=== PATIENT | male | born 1965 | race African-American/Black ===

== ENCOUNTER 2018-04-07 01:58 | Inpatient (IN) | payer MEDICAID ==
[~2018-04-07] VITALS: Ht 180.3 cm; Wt 81.2 kg
[2018-04-07] VITALS (12 sets, daily range): BP systolic 92–142; BP diastolic 60–104
[2018-04-07] MEDS ORDERED: NITROGLYCERIN OINT 1GM/INCH UDPKT TD STA (02:08)
[2018-04-07] MEDS ORDERED: ENALAPRIL 2.5MG/2ML VIAL 2ML IV STA (02:08)
[2018-04-07] MEDS ORDERED: ONDANSETRON HCL 4MG/2ML VIAL IV STA (02:08)
[2018-04-07] MEDS ORDERED: FUROSEMIDE 40MG/4ML VIAL IV STA (02:08)
[2018-04-07 02:38] LABS: BASOPHILS % 0.5 % (0.0-2.0); EOSINOPHILS % 0.6 % (0.0-5.0); HEMATOCRIT. 47.3 % (42.0-52.0); HEMOGLOBIN. 15.6 g/dL (14.0-18.0); LYMPHOCYTES % 19.5 % (20.0-50.0); MEAN CORPUSCULAR HEMOGLOBIN 32.7 pg (28.0-32.0); MEAN PLATELET VOLUME 9.8 fl (7.4-10.4); MONOCYTES % 8.5 % (2.0-8.0); NEUTROPHILS % 70.9 % (40.0-76.0); PLATELET 226 x1000/uL (130-400); RED BLOOD CELL COUNT 4.78 mill/uL (4.7-6.1); RED CELL DISTRIBUTION WIDTH 14.2 % (11.6-14.6)
[2018-04-07 02:42] LABS: CHLORIDE 111 mEq/L (98-107)
[2018-04-07 03:21] LABS: BG BILEVEL POS AIRWAY PRESSURE 151/5; BG CARBOXYHEMOGLOBIN 2.5 % (0.5-1.5); BG DEOXYHEMOGLOBIN 15.3 % (0.0-5.0); BG FRACTION INSPIRED OXYGEN 50; BG HCO3 ACT 20.3 mmol/L (22.0-26.0); BG METHEMOGLOBIN 0.2 % (0.0-1.5); BG OXYGEN SATURATION 84.3 % (92.0-98.5); BG PCO2 34.7 mmHg (35.0-45.0); BG PH 7.384 (7.350-7.450); BG PO2 50.5 mmHg (75.0-100.0); BG SAMPLE SITE LEFT RADIAL; BG TIDAL VOLUME(mL) 913 mL; BG TOTAL HEMOGLOBIN 14.7 g/dL (12.0-18.0); BG VENT MODE MASK - BIPAP; BG VENT RATE 20 set
[2018-04-07] MEDS ORDERED: CLONIDINE 0.1MG TABLET PO PRN (07:15)
[2018-04-07] MEDS ORDERED: ACETAMINOPHEN 325MG TABLET PO PRN (07:15)
[2018-04-07] MEDS: ASPIRIN 81MG EC TABLET PO SCH (08:19)
[2018-04-07] MEDS: AMLODIPINE 10MG TABLET PO SCH (08:20)
[2018-04-07] MEDS: METOPROLOL TARTRATE 25MG TABLET PO SCH ×2 (08:20→20:24)
[2018-04-07] MEDS: ENOXAPARIN 40MG/0.4ML SYR SUBCUT SCH (08:20)
[2018-04-07 12:59] LABS: BG BASE EXCESS -1.9 mmol/L (-2.0-2.0); BG CARBOXYHEMOGLOBIN 0.8 % (0.5-1.5); BG DEOXYHEMOGLOBIN 2.8 % (0.0-5.0); BG FRACTION INSPIRED OXYGEN 40; BG HCO3 ACT 20.8 mmol/L (22.0-26.0); BG METHEMOGLOBIN 0.2 % (0.0-1.5); BG OXYGEN SATURATION 97.2 % (92.0-98.5); BG OXYHEMOGLOBIN 96.2 % (94.0-97.0); BG PCO2 30.2 mmHg (35.0-45.0); BG PH 7.455 (7.350-7.450); BG PO2 86.4 mmHg (75.0-100.0); BG SAMPLE SITE RIGHT RADIAL; BG TOTAL HEMOGLOBIN 15.5 g/dL (12.0-18.0); BG VENT MODE MASK - SIMPLE
[2018-04-07] MEDS ORDERED: IPRATROPIUM/ALBUTEROL 0.5-3(2.5)MG/3ML NEB HHN PRN (13:00)
[2018-04-07] MEDS: IPRATROPIUM/ALBUTEROL 0.5-3(2.5)MG/3ML NEB HHN SCH ×2 (13:04→20:26)
[2018-04-07] MEDS: FUROSEMIDE 40MG/4ML VIAL IVP SCH (13:15)
[2018-04-07] MEDS: METHYLPREDNISOLONE SOD SUCC 40 MG/ML VIAL IV SCH ×2 (13:15→21:43)
[2018-04-07 15:48] LABS: *AMPHETAMINES SCREEN URINE NEGATIVE (NEGATIVE); *BARBITURATES SCREEN URINE NEGATIVE (NEGATIVE); *BENZODIAZEPINES SCREEN URINE NEGATIVE (NEGATIVE); *COCAINE SCREEN URINE PRESUMTIVE POSITIVE (NEGATIVE)
[2018-04-07 15:49] LABS: CANNABINOID URINE SCREEN NEGATIVE (NEGATIVE); METHADONE URINE SCREEN NEGATIVE (NEGATIVE); OPIATES URINE SCREEN NEGATIVE (NEGATIVE); PHENCYCLIDINE URINE SCREEN NEGATIVE (NEGATIVE)
[2018-04-07 16:11] LABS: CREATINE KINASE MB FRACTION 3.7 ng/mL (0.5-3.6)
[2018-04-07 16:26] LABS: HEPATITIS B SURFACE ANTIGEN NEGATIVE
[2018-04-07 16:54] LABS: HEPATITIS B CORE AB IGM NEGATIVE
[2018-04-07] MEDS: HYDROCODONE/ACETAMINOPHEN 5/325MG TABLET PO PRN ×2 (16:54→21:48)
[2018-04-07 16:56] LABS: HEPATITIS A AB IGM NEGATIVE (NEGATIVE)
[2018-04-07] MEDS: ONDANSETRON HCL 4MG/2ML VIAL IV PRN (22:55)
[2018-04-08] VITALS (11 sets, daily range): BP systolic 110–134; BP diastolic 69–101
[2018-04-08] MEDS: BUDESONIDE 0.5MG/2ML NEB HHN SCH ×3 (01:41→19:47)
[2018-04-08] MEDS: IPRATROPIUM/ALBUTEROL 0.5-3(2.5)MG/3ML NEB HHN SCH ×4 (01:41→19:47)
[2018-04-08 02:17] LABS: CREATINE KINASE MB FRACTION 2.5 ng/mL (0.5-3.6)
[2018-04-08] MEDS: HYDROCODONE/ACETAMINOPHEN 5/325MG TABLET PO PRN ×4 (04:30→21:59)
[2018-04-08] MEDS: METHYLPREDNISOLONE SOD SUCC 40 MG/ML VIAL IV SCH ×3 (06:10→22:00)
[2018-04-08 07:12] LABS: HEMATOCRIT. 43.4 % (42.0-52.0); HEMOGLOBIN. 14.5 g/dL (14.0-18.0); MEAN CORPUSCULAR HEMOGLOBIN 32.7 pg (28.0-32.0); MEAN CORPUSCULAR VOLUME 98.2 fL (80.0-94.0); MEAN PLATELET VOLUME 9.8 fl (7.4-10.4); PLATELET 214 x1000/uL (130-400); RED BLOOD CELL COUNT 4.42 mill/uL (4.7-6.1); RED CELL DISTRIBUTION WIDTH 13.8 % (11.6-14.6)
[2018-04-08 07:13] LABS: CHLORIDE 106 mEq/L (98-107)
[2018-04-08 07:33] LABS: LDL CHOLESTEROL 71 mg/dL (5-100)
[2018-04-08 07:34] LABS: HDL CHOLESTEROL 49 mg/dL (40-59)
[2018-04-08] MEDS: ENOXAPARIN 40MG/0.4ML SYR SUBCUT SCH (08:58)
[2018-04-08] MEDS: AMLODIPINE 10MG TABLET PO SCH (08:58)
[2018-04-08] MEDS: ASPIRIN 81MG EC TABLET PO SCH (08:58)
[2018-04-08] MEDS: FUROSEMIDE 40MG/4ML VIAL IVP SCH (08:58)
[2018-04-08] MEDS: METOPROLOL TARTRATE 25MG TABLET PO SCH ×2 (08:58→21:59)
[2018-04-08] MEDS ORDERED: SODIUM BICARBONATE 4% (2.4MEQ) 5ML VIAL IV ONE (08:59)
[2018-04-08] MEDS ORDERED: DIGOXIN 500MCG/2ML AMP IV NR (11:00)
[2018-04-08] MEDS ORDERED: ENOXAPARIN 40MG/0.4ML SYR SUBCUT NR (11:45)
[2018-04-08 12:05] LABS: PLATELET ESTIMATE NORMAL
[2018-04-08 12:18] LABS: T4 FREE 0.9 ng/dL (0.76-1.46)
[2018-04-08 12:33] LABS: INR 1.2; PROTHROMBIN TIME 12.1 sec (9.4-11.6)
[2018-04-08] MEDS: DILTIAZEM HCL 125 MG in DEXT 5% WATER 100 ML IV SCH (13:26)
[2018-04-08 16:11] LABS: CREATINE KINASE MB FRACTION 2.7 ng/mL (0.5-3.6)
[2018-04-08] MEDS: DOCUSATE SODIUM 100MG CAPSULE PO PRN (17:51)
[2018-04-08] MEDS ORDERED: WARFARIN SODIUM 5MG TABLET PO SCH (18:00)
[2018-04-08] MEDS: ENOXAPARIN 80MG/0.8ML SYR SUBCUT SCH (22:00)
[2018-04-09] VITALS (12 sets, daily range): BP systolic 114–155; BP diastolic 62–86
[2018-04-09 00:14] LABS: CREATINE KINASE MB FRACTION 3.1 ng/mL (0.5-3.6)
[2018-04-09] MEDS: IPRATROPIUM/ALBUTEROL 0.5-3(2.5)MG/3ML NEB HHN SCH ×3 (01:06→21:05)
[2018-04-09] MEDS: METHYLPREDNISOLONE SOD SUCC 40 MG/ML VIAL IV SCH (05:47)
[2018-04-09] MEDS: HYDROCODONE/ACETAMINOPHEN 5/325MG TABLET PO PRN ×4 (05:47→22:10)
[2018-04-09 07:12] LABS: INR 1.1
[2018-04-09 07:24] LABS: CREATINE KINASE MB FRACTION 2.7 ng/mL (0.5-3.6)
[2018-04-09] MEDS ORDERED: WARFARIN SODIUM 2.5MG TABLET PO ONE (09:00)
[2018-04-09] MEDS: BUDESONIDE 0.5MG/2ML NEB HHN SCH ×2 (09:08→21:05)
[2018-04-09] MEDS: METOPROLOL TARTRATE 25MG TABLET PO SCH ×2 (09:18→21:39)
[2018-04-09] MEDS: FUROSEMIDE 40MG/4ML VIAL IVP SCH (09:18)
[2018-04-09] MEDS: ASPIRIN 81MG EC TABLET PO SCH (09:18)
[2018-04-09] MEDS: AMLODIPINE 10MG TABLET PO SCH (09:18)
[2018-04-09] MEDS: ENOXAPARIN 80MG/0.8ML SYR SUBCUT SCH ×2 (09:18→21:39)
[2018-04-09] MEDS: DILTIAZEM HCL 125 MG in DEXT 5% WATER 100 ML IV SCH (17:53)
[2018-04-09] MEDS ORDERED: WARFARIN SODIUM 7.5MG TABLET PO NR (18:00)
[2018-04-10] VITALS (16 sets, daily range): BP systolic 104–165; BP diastolic 62–100
[2018-04-10] MEDS: IPRATROPIUM/ALBUTEROL 0.5-3(2.5)MG/3ML NEB HHN SCH ×4 (02:50→20:29)
[2018-04-10] MEDS: HYDROCODONE/ACETAMINOPHEN 5/325MG TABLET PO PRN ×4 (03:19→20:28)
[2018-04-10 06:47] LABS: INR 1.2; PROTHROMBIN TIME 12.4 sec (9.4-11.6)
[2018-04-10] MEDS ORDERED: PREDNISONE 20MG TABLET PO SCH (08:00)
[2018-04-10] MEDS: BUDESONIDE 0.5MG/2ML NEB HHN SCH (08:10)
[2018-04-10] MEDS: FUROSEMIDE 40MG/4ML VIAL IVP SCH (08:35)
[2018-04-10] MEDS: ASPIRIN 81MG EC TABLET PO SCH (08:35)
[2018-04-10] MEDS: ENOXAPARIN 80MG/0.8ML SYR SUBCUT SCH ×2 (08:36→20:29)
[2018-04-10] MEDS: LOSARTAN POTASSIUM 25 MG TABLET PO SCH (09:53)
[2018-04-10 10:58] LABS: HEMATOCRIT 46.5 % (42.0-52.0); HEMOGLOBIN 15.3 g/dL (14.0-18.0); MEAN CORPUSCULAR HEMOGLOBIN 32.4 pg (28.0-32.0); MEAN CORPUSCULAR VOLUME 98.5 fL (80.0-94.0); PLATELET 243 x1000/uL (130-400); RED BLOOD CELL COUNT 4.72 mill/uL (4.7-6.1)
[2018-04-10] MEDS ORDERED: DIGOXIN 500MCG/2ML AMP IV NR (16:08)
[2018-04-10] MEDS: METOPROLOL TARTRATE 50MG TABLET PO SCH (17:59)
[2018-04-10] MEDS ORDERED: WARFARIN SODIUM 7.5MG TABLET PO NR (18:00)
[2018-04-10] MEDS ORDERED: METOPROLOL TARTRATE 50MG TABLET PO SCH (21:00)
[2018-04-11] VITALS (14 sets, daily range): BP systolic 97–161; BP diastolic 66–107
[2018-04-11] MEDS: HYDROCODONE/ACETAMINOPHEN 5/325MG TABLET PO PRN ×4 (00:29→18:29)
[2018-04-11] MEDS: IPRATROPIUM/ALBUTEROL 0.5-3(2.5)MG/3ML NEB HHN SCH ×4 (02:32→21:20)
[2018-04-11 06:36] LABS: INR 1.5; PROTHROMBIN TIME 15.2 sec (9.4-11.6)
[2018-04-11] MEDS ORDERED: PREDNISONE 20MG TABLET PO SCH (09:00)
[2018-04-11] MEDS: LOSARTAN POTASSIUM 25 MG TABLET PO SCH (09:49)
[2018-04-11] MEDS: ASPIRIN 81MG EC TABLET PO SCH (09:51)
[2018-04-11] MEDS: FUROSEMIDE 40MG/4ML VIAL IVP SCH (09:51)
[2018-04-11] MEDS: ENOXAPARIN 80MG/0.8ML SYR SUBCUT SCH ×2 (09:52→21:43)
[2018-04-11] MEDS: METOPROLOL TARTRATE 50MG TABLET PO SCH ×2 (09:58→21:43)
[2018-04-11] MEDS ORDERED: WARFARIN SODIUM 7.5MG TABLET PO SCH (18:00)
[2018-04-12] VITALS (15 sets, daily range): BP systolic 115–156; BP diastolic 42–111
[2018-04-12] MEDS: HYDROCODONE/ACETAMINOPHEN 5/325MG TABLET PO PRN ×4 (01:39→19:50)
[2018-04-12] MEDS: IPRATROPIUM/ALBUTEROL 0.5-3(2.5)MG/3ML NEB HHN SCH ×5 (02:16→20:35)
[2018-04-12] MEDS: FUROSEMIDE 40MG TABLET PO SCH (09:48)
[2018-04-12] MEDS: LOSARTAN POTASSIUM 25 MG TABLET PO SCH (09:48)
[2018-04-12] MEDS: ENOXAPARIN 80MG/0.8ML SYR SUBCUT SCH (09:48)
[2018-04-12] MEDS: ASPIRIN 81MG EC TABLET PO SCH (09:48)
[2018-04-12] MEDS: METOPROLOL TARTRATE 50MG TABLET PO SCH ×2 (09:49→20:24)
[2018-04-12 11:13] LABS: BASOPHILS % 0.3 % (0.0-2.0); EOSINOPHILS % 2.8 % (0.0-5.0); HEMATOCRIT. 48.8 % (42.0-52.0); HEMOGLOBIN. 16.4 g/dL (14.0-18.0); LYMPHOCYTES % 31.5 % (20.0-50.0); MEAN CORPUSCULAR HEMOGLOBIN 32.6 pg (28.0-32.0); MEAN CORPUSCULAR VOLUME 97.2 fL (80.0-94.0); MEAN PLATELET VOLUME 9.7 fl (7.4-10.4); NEUTROPHILS % 56.4 % (40.0-76.0); PLATELET 241 x1000/uL (130-400); RED BLOOD CELL COUNT 5.02 mill/uL (4.7-6.1); RED CELL DISTRIBUTION WIDTH 13.9 % (11.6-14.6)
[2018-04-12 11:36] LABS: INR 2.4; PROTHROMBIN TIME 25.1 sec (9.4-11.6)
[2018-04-12 11:49] LABS: CHLORIDE 103 mEq/L (98-107)
[2018-04-13] VITALS (10 sets, daily range): BP systolic 115–154; BP diastolic 68–95
[2018-04-13] MEDS: HYDROCODONE/ACETAMINOPHEN 5/325MG TABLET PO PRN ×4 (00:14→19:42)
[2018-04-13] MEDS: IPRATROPIUM/ALBUTEROL 0.5-3(2.5)MG/3ML NEB HHN SCH ×4 (01:41→20:05)
[2018-04-13 08:28] LABS: INR 1.6; PROTHROMBIN TIME 16.1 sec (9.4-11.6)
[2018-04-13] MEDS: FUROSEMIDE 40MG TABLET PO SCH (10:47)
[2018-04-13] MEDS: LOSARTAN POTASSIUM 25 MG TABLET PO SCH (10:47)
[2018-04-13] MEDS: DOCUSATE SODIUM 100MG CAPSULE PO PRN (10:48)
[2018-04-13] MEDS: METOPROLOL TARTRATE 50MG TABLET PO SCH ×2 (10:48→21:18)
[2018-04-13] MEDS: ASPIRIN 81MG EC TABLET PO SCH (10:48)
[2018-04-13] MEDS: ENOXAPARIN 80MG/0.8ML SYR SUBCUT SCH (14:28)
[2018-04-13] MEDS ORDERED: WARFARIN SODIUM 2MG TABLET PO NR (18:00)
[2018-04-13] MEDS ORDERED: WARFARIN SODIUM 5MG TABLET PO NR (18:00)
[2018-04-13] MEDS: ONDANSETRON HCL 4MG/2ML VIAL IV PRN (20:07)
[2018-04-14] VITALS (12 sets, daily range): BP systolic 94–135; BP diastolic 58–94
[2018-04-14] MEDS: ENOXAPARIN 80MG/0.8ML SYR SUBCUT SCH ×2 (01:58→15:24)
[2018-04-14] MEDS: ONDANSETRON HCL 4MG/2ML VIAL IV PRN (02:04)
[2018-04-14] MEDS: IPRATROPIUM/ALBUTEROL 0.5-3(2.5)MG/3ML NEB HHN SCH ×4 (02:05→21:24)
[2018-04-14] MEDS: HYDROCODONE/ACETAMINOPHEN 5/325MG TABLET PO PRN ×4 (02:05→22:27)
[2018-04-14] MEDS ORDERED: MAGNESIUM/ALUMINUM HYDROXIDE/SIMETHICONE 30ML UDC PO PRN ×2 (02:30)
[2018-04-14 07:35] LABS: INR 1.4; PROTHROMBIN TIME 15.1 sec (9.4-11.6)
[2018-04-14] MEDS: ASPIRIN 81MG EC TABLET PO SCH (08:23)
[2018-04-14] MEDS: LOSARTAN POTASSIUM 25 MG TABLET PO SCH (08:25)
[2018-04-14] MEDS: METOPROLOL TARTRATE 50MG TABLET PO SCH ×2 (08:26→21:06)
[2018-04-14] MEDS: FUROSEMIDE 40MG TABLET PO SCH (08:27)
[2018-04-14] MEDS ORDERED: WARFARIN SODIUM 2MG TABLET PO NR (18:00)
[2018-04-14] MEDS ORDERED: WARFARIN SODIUM 5MG TABLET PO NR (18:00)
[2018-04-14] MEDS ORDERED: ZOLPIDEM TARTRATE 5MG TABLET PO PRN (20:15)
[2018-04-14] MEDS: DOCUSATE SODIUM 100MG CAPSULE PO PRN (22:29)
[2018-04-15] VITALS: BP 107/78
[2018-04-15] MEDS: IPRATROPIUM/ALBUTEROL 0.5-3(2.5)MG/3ML NEB HHN SCH ×2 (01:12→08:22)
[2018-04-15 02:00] VITALS: BP 108/56
[2018-04-15] MEDS: ENOXAPARIN 80MG/0.8ML SYR SUBCUT SCH (02:26)
[2018-04-15] MEDS: HYDROCODONE/ACETAMINOPHEN 5/325MG TABLET PO PRN ×2 (03:18→09:51)
[2018-04-15 04:00] VITALS: BP 116/68
[2018-04-15 06:00] VITALS: BP 117/63
[2018-04-15 08:00] VITALS: BP 114/85
[2018-04-15 08:29] LABS: INR 1.4; PROTHROMBIN TIME 14.5 sec (9.4-11.6)
[2018-04-15 08:49] LABS: CHLORIDE 100 mEq/L (98-107)
[2018-04-15 09:00] LABS: EOSINOPHILS % 7.6 % (0.0-5.0); HEMATOCRIT. 51.5 % (42.0-52.0); HEMOGLOBIN. 17.4 g/dL (14.0-18.0); LYMPHOCYTES % 56.5 % (20.0-50.0); MEAN CORPUSCULAR HEMOGLOBIN 32.7 pg (28.0-32.0); MEAN CORPUSCULAR VOLUME 96.9 fL (80.0-94.0); MEAN PLATELET VOLUME 9.4 fl (7.4-10.4); MONOCYTES % 7.7 % (2.0-8.0); NEUTROPHILS % 27.2 % (40.0-76.0); PLATELET 262 x1000/uL (130-400); RED BLOOD CELL COUNT 5.32 mill/uL (4.7-6.1); RED CELL DISTRIBUTION WIDTH 13.3 % (11.6-14.6)
[2018-04-15] MEDS: DOCUSATE SODIUM 100MG CAPSULE PO PRN (09:49)
[2018-04-15] MEDS: ASPIRIN 81MG EC TABLET PO SCH (09:49)
[2018-04-15] MEDS: METOPROLOL TARTRATE 50MG TABLET PO SCH (09:50)
[2018-04-15] MEDS: LOSARTAN POTASSIUM 25 MG TABLET PO SCH (09:50)
[2018-04-15] MEDS: FUROSEMIDE 40MG TABLET PO SCH (09:52)
[2018-04-15 10:53] VITALS: BP 114/85
[2018-04-15] MEDS ORDERED: WARFARIN SODIUM 7.5MG TABLET PO NR (18:00)
== END 2018-04-15 14:30 | disposition home or self-care (01) | DRG 469 ==
LOC: ER 02:17 → 5EST 02:40 → ENRESERV 03:27
PROVIDERS: ADMIT Hospitalist; ATTEND Hospitalist
PROC: 5A09357 Assistance with Respiratory Ventilation, Less than 24 Consecutive Hours, Continuous Positive Airway Pressure (ICD-10-PCS; principal; 2018-04-07)
DX: N17.9 Acute kidney failure, unspecified (principal); J96.01 Acute respiratory failure with hypoxia; E43 Unspecified severe protein-calorie malnutrition; I50.23 Acute on chronic systolic (congestive) heart failure; I48.92 Unspecified atrial flutter; I42.9 Cardiomyopathy, unspecified; I48.91 Unspecified atrial fibrillation; I13.0 Hypertensive heart and chronic kidney disease with heart failure and stage 1 through stage 4 chronic kidney disease, or unspecified chronic kidney disease; J44.1 Chronic obstructive pulmonary disease with (acute) exacerbation; R00.0 Tachycardia, unspecified; F17.200 Nicotine dependence, unspecified, uncomplicated; N18.9 Chronic kidney disease, unspecified; J98.11 Atelectasis; Z68.25 Body mass index [BMI] 25.0-25.9, adult
CPT/HCPCS: 36415; 36600; 70450; 71045; 78580; 80048; 80053; 80061; 80305; 82375; 82550; 82553; 82805; 83036; 83735; 83880; 84439; 84443; 84484; 85025; 85027; 85379; 85610; 86705; 86709; 86803; 87340; 93005; 93306; 93970; 94640; 94660; 96374; 96375; 97162; 99291; J1160; J1650; J1940; J2405; J2920; J3490; J7060; J7512; J7620; J7626; A4315

== ENCOUNTER 2018-11-27 02:22 | Inpatient (IN) | payer MEDICAID ==
[~2018-11-27] VITALS: Ht 180.3 cm; Wt 79.8 kg
[~2018-11-27 02:22] MED LIST: FURO-151 MT; METO-539 PO
[2018-11-27] MEDS: METOPROLOL TARTRATE 5MG/5ML VIAL IV SCH ×3 (03:34→04:40)
[2018-11-27] MEDS ORDERED: KETOROLAC 30MG/ML VIAL IV ONE (03:45)
[2018-11-27 03:48] LABS: BASOPHILS % 0.4 % (0.0-2.0); EOSINOPHILS % 3.5 % (0.0-5.0); HEMATOCRIT. 48.6 % (42.0-52.0); HEMOGLOBIN. 16.1 g/dL (14.0-18.0); LYMPHOCYTES % 34.3 % (20.0-50.0); MEAN CORPUSCULAR HEMOGLOBIN 32.5 pg (28.0-32.0); MEAN CORPUSCULAR VOLUME 98.4 fL (80.0-94.0); MEAN PLATELET VOLUME 9.1 fl (7.4-10.4); MONOCYTES % 7.3 % (2.0-8.0); NEUTROPHILS % 54.5 % (40.0-76.0); PLATELET 267 x1000/uL (130-400); RED BLOOD CELL COUNT 4.94 mill/uL (4.7-6.1); RED CELL DISTRIBUTION WIDTH 15.2 % (11.6-14.6)
[2018-11-27 03:55] LABS: CHLORIDE 109 mEq/L (98-107)
[2018-11-27 03:59] LABS: INR 1.1; PROTHROMBIN TIME 10.7 sec (9.1-11.1)
[2018-11-27] MEDS ORDERED: ASPIRIN 325MG EC TABLET PO ONE (06:15)
[2018-11-27] MEDS ORDERED: ALBUTEROL (0.083%) 2.5MG/3ML NEB HHN ONE (06:30)
[2018-11-27] MEDS ORDERED: SODIUM BICARBONATE 8.4% 1 MEQ/ML 50ML SYR IV ONE (06:30)
[2018-11-27] MEDS ORDERED: DEXTROSE 50% WATER 50ML SYRINGE IV ONE (06:30)
[2018-11-27] MEDS ORDERED: INSULIN REGULAR (HUMULIN R) 300UNITS/3ML IV ONE (06:30)
[2018-11-27] MEDS ORDERED: ENOXAPARIN 80MG/0.8ML SYR SUBCUT SCH (07:00)
[2018-11-27] MEDS ORDERED: IPRATROPIUM/ALBUTEROL 0.5-3(2.5)MG/3ML NEB INH PRN (09:00)
[2018-11-27] MEDS ORDERED: AMLODIPINE 10MG TABLET PO SCH (09:00)
[2018-11-27] MEDS ORDERED: ACETAMINOPHEN 325MG TABLET PO PRN (09:00)
[2018-11-27] MEDS ORDERED: DOCUSATE SODIUM 100MG CAPSULE PO PRN (09:00)
[2018-11-27] MEDS ORDERED: LORAZEPAM 0.5MG TABLET PO PRN (09:00)
[2018-11-27] MEDS ORDERED: GUAIFENESIN 200MG/10ML SUGAR FREE UDC PO PRN (09:00)
[2018-11-27] MEDS ORDERED: ONDANSETRON HCL 4MG/2ML INJ IV PRN (09:00)
[2018-11-27] MEDS ORDERED: CLONIDINE 0.1MG TABLET PO PRN (09:00)
[2018-11-27] MEDS ORDERED: MAGNESIUM/ALUMINUM HYDROXIDE/SIMETHICONE 30ML UDC PO PRN (09:00)
[2018-11-27] MEDS: KETOROLAC 15MG/ML VIAL IV PRN ×3 (09:56→23:15)
[2018-11-27 10:10] LABS: ETHANOL BLOOD < 10 mg/dL
[2018-11-27 10:13] LABS: LDL CHOLESTEROL 75 mg/dL (5-100)
[2018-11-27 10:15] LABS: HDL CHOLESTEROL 63 mg/dL (40-59)
[2018-11-27] MEDS: ASPIRIN 325MG EC TABLET PO SCH (10:30)
[2018-11-27 16:10] LABS: CREATINE KINASE MB FRACTION 11.8 ng/mL (0.5-3.6)
[2018-11-27] MEDS ORDERED: DILTIAZEM HCL 60MG TABLET PO SCH (18:15)
[2018-11-27] MEDS: FUROSEMIDE 40MG/4ML VIAL IVP SCH ×2 (18:43→21:52)
[2018-11-27 21:00] VITALS: BP 98/76
[2018-11-27] MEDS ORDERED: ZOLPIDEM TARTRATE 5MG TABLET PO PRN (21:00)
[2018-11-27] MEDS: FAMOTIDINE 20MG TABLET PO SCH (21:52)
[2018-11-27] MEDS ORDERED: SODIUM POLYSTYRENE SULFONATE 15 G/60 ML BOT PO NR (22:30)
[2018-11-27] MEDS: DILTIAZEM HCL 60MG TABLET PO SCH (23:36)
[2018-11-28 00:24] LABS: CREATINE KINASE MB FRACTION 12.3 ng/mL (0.5-3.6)
[2018-11-28 00:41] VITALS: BP 110/90
[2018-11-28 04:00] VITALS: BP 145/71
[2018-11-28] MEDS: DILTIAZEM HCL 60MG TABLET PO SCH ×3 (05:54→18:53)
[2018-11-28] MEDS: KETOROLAC 15MG/ML VIAL IV PRN ×3 (05:54→18:54)
[2018-11-28 08:00] VITALS: BP 144/89
[2018-11-28] MEDS: ASPIRIN 325MG EC TABLET PO SCH (10:39)
[2018-11-28] MEDS: ENOXAPARIN 40MG/0.4ML SYR SUBCUT SCH (10:40)
[2018-11-28] MEDS: FUROSEMIDE 40MG/4ML VIAL IVP SCH ×2 (10:40→21:52)
[2018-11-28 12:21] VITALS: BP 130/79
[2018-11-28 16:00] VITALS: BP 122/76
[2018-11-28] MEDS: FAMOTIDINE 20MG TABLET PO SCH (21:52)
[2018-11-29] VITALS: BP 115/78
[2018-11-29] MEDS: KETOROLAC 15MG/ML VIAL IV PRN ×2 (00:08→06:19)
[2018-11-29 01:52] LABS: CANNABINOID URINE SCREEN NEGATIVE (NEGATIVE); PHENCYCLIDINE URINE SCREEN NEGATIVE (NEGATIVE)
[2018-11-29 01:53] LABS: *AMPHETAMINES SCREEN URINE NEGATIVE (NEGATIVE); *BARBITURATES SCREEN URINE NEGATIVE (NEGATIVE); *BENZODIAZEPINES SCREEN URINE NEGATIVE (NEGATIVE); *COCAINE SCREEN URINE PRESUMTIVE POSITIVE (NEGATIVE); METHADONE URINE SCREEN NEGATIVE (NEGATIVE); OPIATES URINE SCREEN NEGATIVE (NEGATIVE)
[2018-11-29 04:00] VITALS: BP 126/85
[2018-11-29] MEDS: DILTIAZEM HCL 60MG TABLET PO SCH ×3 (06:19→12:00)
[2018-11-29 08:00] VITALS: BP 107/75
[2018-11-29] MEDS: FUROSEMIDE 40MG/4ML VIAL IVP SCH (09:21)
[2018-11-29] MEDS: ENOXAPARIN 40MG/0.4ML SYR SUBCUT SCH (09:21)
[2018-11-29] MEDS: ASPIRIN 325MG EC TABLET PO SCH (09:22)
[2018-11-29 12:02] VITALS: BP 107/75
== END 2018-11-29 15:49 | disposition home or self-care (01) | DRG 194 ==
LOC: ER 02:22 → 6WST 06:22 → ENRESERV 20:13
PROVIDERS: ADMIT Internal Medicine; ATTEND Internal Medicine
DX: I11.0 Hypertensive heart disease with heart failure (principal); N17.0 Acute kidney failure with tubular necrosis; I50.43 Acute on chronic combined systolic (congestive) and diastolic (congestive) heart failure; E87.5 Hyperkalemia; I42.9 Cardiomyopathy, unspecified; F14.10 Cocaine abuse, uncomplicated; Z59.0 Homelessness
CPT/HCPCS: 36415; 71045; 80061; 80305; 82550; 82553; 82962; 83036; 83880; 84484; 93005; 93970; 97162; 99285; A6261; J1650; J1815; J1885; J1940; J3490

== ENCOUNTER 2018-12-20 17:53 | Inpatient (IN) | payer MEDICAID ==
[~2018-12-20] VITALS: Ht 180.3 cm; Wt 77.1 kg
[2018-12-20] MEDS ORDERED: ONDANSETRON HCL 4MG/2ML INJ IV STA (19:20)
[2018-12-20] MEDS ORDERED: MORPHINE SULFATE 4 MG/ML CPJ (NOT FOR IM USE) IV STA (19:20)
[2018-12-20] MEDS ORDERED: SODIUM CHLORIDE 0.9% 1000ML BAG (SEPSIS BOLUS) IV ONE (19:30)
[2018-12-20 19:48] LABS: BASOPHILS % 0.3 % (0.0-2.0); EOSINOPHILS % 0.1 % (0.0-5.0); HEMATOCRIT. 49.9 % (42.0-52.0); HEMOGLOBIN. 16.5 g/dL (14.0-18.0); LYMPHOCYTES % 10.7 % (20.0-50.0); MEAN CORPUSCULAR HEMOGLOBIN 31.9 pg (28.0-32.0); MEAN CORPUSCULAR VOLUME 96.4 fL (80.0-94.0); MEAN PLATELET VOLUME 9.1 fl (7.4-10.4); MONOCYTES % 4.4 % (2.0-8.0); NEUTROPHILS % 84.5 % (40.0-76.0); PLATELET 233 x1000/uL (130-400); RED BLOOD CELL COUNT 5.17 mill/uL (4.7-6.1)
[2018-12-20 19:54] LABS: CHLORIDE 106 mEq/L (98-107)
[2018-12-20 19:57] LABS: INR 1.1; PARTIAL THROMBOPLASTIN TIME 26.8 sec (23.4-31.0); PROTHROMBIN TIME 11.4 sec (9.1-11.1)
[2018-12-20 19:58] LABS: ETHANOL BLOOD < 10 mg/dL
[2018-12-20] MEDS ORDERED: LEVOFLOXACIN 750MG PREMIX 150 ML IV ONE (21:45)
[2018-12-20] MEDS ORDERED: ASPIRIN 325MG EC TABLET PO ONE (21:45)
[2018-12-20] MEDS ORDERED: IPRATROPIUM/ALBUTEROL 0.5-3(2.5)MG/3ML NEB INH PRN (22:00)
[2018-12-20] MEDS ORDERED: CLONIDINE 0.1MG TABLET PO PRN (22:00)
[2018-12-20] MEDS ORDERED: NITROGLYCERIN 0.4MG TABLET SL SL PRN (22:00)
[2018-12-20] MEDS ORDERED: ACETAMINOPHEN 325MG TABLET PO PRN (22:00)
[2018-12-20] MEDS ORDERED: GUAIFENESIN 200MG/10ML SUGAR FREE UDC PO PRN (22:00)
[2018-12-20] MEDS ORDERED: MAGNESIUM/ALUMINUM HYDROXIDE/SIMETHICONE 30ML UDC PO PRN (22:00)
[2018-12-20] MEDS ORDERED: ONDANSETRON HCL 4MG/2ML INJ IV PRN (22:00)
[2018-12-20] MEDS ORDERED: LORAZEPAM 0.5MG TABLET PO PRN (22:00)
[2018-12-20] MEDS ORDERED: DOCUSATE SODIUM 100MG CAPSULE PO PRN (22:00)
[2018-12-20] MEDS ORDERED: MORPHINE SULFATE 4 MG/ML CPJ (NOT FOR IM USE) IV ONE (22:30)
[2018-12-20 22:59] LABS: CLARITY URINE CLEAR (CLEAR); COLOR URINE YELLOW (YELLOW); KETONES URINE TRACE (NEGATIVE); LEUKOCYTE ESTERASE URINE NEGATIVE (NEGATIVE); NITRITE URINE NEGATIVE (NEGATIVE); OCCULT BLOOD URINE NEGATIVE (NEGATIVE); PROTEIN URINE 1+ (NEGATIVE); SPECIFIC GRAVITY URINE 1.022 (1.005-1.030); UROBILINOGEN URINE 0.2 E.U./dL (0.2-1.0)
[2018-12-20 23:13] LABS: *AMPHETAMINES SCREEN URINE NEGATIVE (NEGATIVE); *BARBITURATES SCREEN URINE NEGATIVE (NEGATIVE); CANNABINOID URINE SCREEN NEGATIVE (NEGATIVE); PHENCYCLIDINE URINE SCREEN NEGATIVE (NEGATIVE)
[2018-12-20 23:14] LABS: *BENZODIAZEPINES SCREEN URINE NEGATIVE (NEGATIVE); *COCAINE SCREEN URINE PRESUMTIVE POSITIVE (NEGATIVE); METHADONE URINE SCREEN NEGATIVE (NEGATIVE); OPIATES URINE SCREEN PRESUMTIVE POSITIVE (NEGATIVE)
[2018-12-20 23:46] LABS: CREATINE KINASE MB FRACTION 5.4 ng/mL (0.5-3.6)
[2018-12-21] MEDS ORDERED: KETOROLAC 15MG/ML VIAL IV PRN (01:56)
[2018-12-21 06:30] LABS: CREATINE KINASE MB FRACTION 5.4 ng/mL (0.5-3.6)
[2018-12-21 08:30] VITALS: BP 100/64
[2018-12-21] MEDS ORDERED: ASPIRIN 325MG EC TABLET PO SCH (09:00)
[2018-12-21] MEDS ORDERED: SPIRONOLACTONE 25MG TABLET PO SCH (09:00)
[2018-12-21] MEDS ORDERED: FAMOTIDINE 20MG TABLET PO SCH (09:00)
[2018-12-21] MEDS ORDERED: ENOXAPARIN 40MG/0.4ML SYR SUBCUT SCH (09:00)
[2018-12-21] MEDS ORDERED: FUROSEMIDE 40MG/4ML VIAL IVP SCH (09:00)
[2018-12-21 09:45] VITALS: BP 105/60
[2018-12-21 10:22] VITALS: BP 105/60
[2018-12-21 12:00] VITALS: BP 106/62
[2018-12-21] MEDS: DILTIAZEM HCL 60MG TABLET PO SCH ×2 (12:00)
[2018-12-21 16:00] VITALS: BP 110/74
[2018-12-21] MEDS ORDERED: ZOLPIDEM TARTRATE 5MG TABLET PO PRN (21:00)
== END 2018-12-21 17:23 | disposition home or self-care (01) | DRG 816 ==
LOC: ER 18:06 → EDBEDREQ 21:50 → ENRESERV 12-21 07:27 → 7WST 12-21 08:34
PROVIDERS: ADMIT Internal Medicine; ATTEND Internal Medicine
DX: T40.5X1A Poisoning by cocaine, accidental (unintentional), initial encounter (principal); N17.0 Acute kidney failure with tubular necrosis; I50.9 Heart failure, unspecified; F17.210 Nicotine dependence, cigarettes, uncomplicated; F14.10 Cocaine abuse, uncomplicated; R74.8 Abnormal levels of other serum enzymes; I20.1 Angina pectoris with documented spasm; R55 Syncope and collapse; I42.9 Cardiomyopathy, unspecified; I11.0 Hypertensive heart disease with heart failure; W18.30XA Fall on same level, unspecified, initial encounter; Z59.0 Homelessness; Y92.89 Other specified places as the place of occurrence of the external cause; Z76.5 Malingerer [conscious simulation]; Y93.89 Activity, other specified; Y99.8 Other external cause status
CPT/HCPCS: 36415; 71045; 73130; 74176; 80305; 80320; 82550; 82553; 83605; 84145; 84484; 93005; 93970; 96365; 96375; 99285; J1885; J1940; J1956; J2270; J2405; J7030; J7040; G0480